=== PATIENT | male | born 1940 | race Caucasian/White ===

== ENCOUNTER 2018-02-05 13:22 | Inpatient (IN) | payer MEDICARE ==
[~2018-02-05] VITALS: Ht 160 cm; Wt 63.0 kg
[~2018-02-05 13:22] MED LIST: ASPI-496 PO; CETI10TA24 PO; CHOL2000 PO; CYAN25009 PO; DOXY25TA18 PO; HYDR-3237 PO; HYDR-3240 PO; LACT1CAP35 PO; LEVO25TA4 PO; LISI-167 PO; LUTE20TA PO; MAGN250T8 PO; MELO15TA24 PO; MELO7.5T31 PO; MULT-377 PO; OMEP-110 PO; TAMS0.4C2 PO; TRAM50TA2 PO; UBID100C24 PO
[2018-02-05 14:25] LABS: MEAN CORPUSCULAR HEMOGLOBIN 32.5 pg (27.5-34.5); MEAN CORPUSCULAR HGB CONC 34.4 g/dL (33.2-36.2); MEAN CORPUSCULAR VOLUME 94.4 fL (81-97); MEAN PLATELET VOLUME 8.5 fL (7.4-10.4); PLATELET COUNT 343 x10^3/uL (130-400); RED BLOOD COUNT 3.77 x10^6/uL (4.38-5.82); RED CELL DISTRIBUTION WIDTH 16.1 % (9.4-14.8)
[2018-02-05 14:29] LABS: ALBUMIN 3.4 g/dL (3.4-5.0); ANION GAP 10 mmol/L (5-15); CALCIUM 9.5 mg/dL (8.5-10.1); CHLORIDE 99 mmol/L (98-107)
[2018-02-05 14:44] LABS: ALANINE AMINOTRANSFERASE 1005 U/L (12-78); ALKALINE PHOSPHATASE 1066 U/L (45-117)
[2018-02-05] MEDS ORDERED: MIRA50TA PO (14:52)
[2018-02-05] MEDS ORDERED: DONE10TA14 PO (14:56)
[2018-02-05 14:58] LABS: MD YES
[2018-02-05] MEDS ORDERED: SODIUM CHLORIDE FLUSH 10ML SYR IVF ONE (15:00)
[2018-02-05 15:03] LABS: ANISOCYTOSIS 1+; BASOS#(MANUAL) 0.14 x10^3/uL (0-0.1); BASOS% (MANUAL) 2 % (0-1); LYMPH#(MANUAL) 0.63 x10^3/uL (1-3.4); LYMPHS% (MANUAL) 9 % (22-44); MONOS#(MANUAL) 0.63 x10^3/uL (0.3-2.7); MONOS% (MANUAL) 9 % (2-9); SEGS% (MANUAL) 80 % (42-75)
[2018-02-05 15:04] LABS: <PLATELET ESTIMATE> ADEQUATE; <PLT MORPHOLOGY> NORMAL PLT MORPH; MICROCYTOSIS 1+; TARGET CELLS 3+
[2018-02-05 15:57] LABS: MICROSCOPIC INDICATED
[2018-02-05 16:02] LABS: CULTURE INDICATED? YES
[2018-02-05] MEDS ORDERED: ONDANSETRON ODT 4 MG PO PRN (17:30)
[2018-02-05] MEDS ORDERED: LABETALOL 5MG/ML, 20ML IVPush PRN (17:30)
[2018-02-05] MEDS ORDERED: POLYETHYLENE GLYCOL 17 GM PACKET PO PRN (17:30)
[2018-02-05] MEDS ORDERED: ONDANSETRON 2MG/ML, 2ML IVPush PRN (17:30)
[2018-02-05 18:36] LABS: FREE T4 (FREE THYROXINE) 1.36 ng/dL (0.76-1.46)
[2018-02-05 19:30] VITALS: BP 131/61
[2018-02-05] MEDS: TAMSULOSIN 0.4 MG CAP.ER.24H PO SCH (21:37)
[2018-02-05] MEDS: DONEPEZIL 10 MG TABLET PO SCH (21:37)
[2018-02-05] MEDS: D5%-0.9% NACL 1,000 ML IV SCH (21:42)
[2018-02-06 05:29] LABS: MEAN CORPUSCULAR HEMOGLOBIN 32.6 pg (27.5-34.5); MEAN CORPUSCULAR HGB CONC 34.8 g/dL (33.2-36.2); MEAN CORPUSCULAR VOLUME 93.6 fL (81-97); MEAN PLATELET VOLUME 8.6 fL (7.4-10.4); PLATELET COUNT 332 x10^3/uL (130-400); RED BLOOD COUNT 3.55 x10^6/uL (4.38-5.82); RED CELL DISTRIBUTION WIDTH 16.2 % (9.4-14.8)
[2018-02-06] MEDS: LEVOTHYROXINE 125 MCG TABLET PO SCH (05:58)
[2018-02-06 06:05] LABS: MD YES
[2018-02-06 06:10] LABS: BASOS#(MANUAL) 0.11 x10^3/uL (0-0.1); BASOS% (MANUAL) 2 % (0-1); EOS#(MANUAL) 0.21 x10^3/uL (0.0-0.4); EOS% (MANUAL) 4 % (1-7); LYMPH#(MANUAL) 1.11 x10^3/uL (1-3.4); LYMPHS% (MANUAL) 21 % (22-44); MONOS#(MANUAL) 0.16 x10^3/uL (0.3-2.7); MONOS% (MANUAL) 3 % (2-9); SEG#(MANUAL) 3.71 x10^3/uL (1.8-6.8); SEGS% (MANUAL) 70 % (42-75)
[2018-02-06 06:13] LABS: <PLATELET ESTIMATE> ADEQUATE; <PLT MORPHOLOGY> NORMAL PLT MORPH; ANISOCYTOSIS 1+; TARGET CELLS 1+
[2018-02-06 07:48] VITALS: BP 111/59
[2018-02-06] MEDS: D5%-0.9% NACL 1,000 ML IV SCH ×2 (07:52→22:26)
[2018-02-06] MEDS: Ubidecarenone (Coq-10) 200 MG HOMEMEDPO SCH (09:00)
[2018-02-06] MEDS: SENNA/DOCUSATE TABLET PO SCH (09:00)
[2018-02-06] MEDS: LUTEIN 20 MG HOMEMEDPO SCH (09:00)
[2018-02-06 09:53] LABS: ALANINE AMINOTRANSFERASE 898 U/L (12-78); ANION GAP 11 mmol/L (5-15); CHLORIDE 102 mmol/L (98-107); CREATININE 1.64 mg/dL (0.7-1.3)
[2018-02-06 10:06] LABS: ALKALINE PHOSPHATASE 993 U/L (45-117); BILIRUBIN,TOTAL 13.1 mg/dL (0.2-1.0); TOTAL PROTEIN 6.1 g/dL (6.4-8.2)
[2018-02-06] MEDS: MULTIVITAMINS/MINERALS TABLET PO SCH (10:30)
[2018-02-06] MEDS: LISINOPRIL 10 MG TABLET PO SCH (10:31)
[2018-02-06] MEDS: CHOLECALCIFEROL 1,000 UNIT TABLET PO SCH (10:32)
[2018-02-06 13:42] LABS: INTERNATIONAL NORMALIZED RATIO 0.97 (0.93-1.1)
[2018-02-06 15:03] VITALS: BP 103/63
[2018-02-06 19:27] VITALS: BP 128/74
[2018-02-06] MEDS: TAMSULOSIN 0.4 MG CAP.ER.24H PO SCH (20:07)
[2018-02-06] MEDS: DONEPEZIL 10 MG TABLET PO SCH (20:07)
[2018-02-07 01:34] VITALS: BP 122/68
[2018-02-07 05:44] LABS: MEAN CORPUSCULAR HEMOGLOBIN 31.5 pg (27.5-34.5); MEAN CORPUSCULAR HGB CONC 33.9 g/dL (33.2-36.2); MEAN PLATELET VOLUME 9.1 fL (7.4-10.4); PLATELET COUNT 314 x10^3/uL (130-400); RED BLOOD COUNT 3.44 x10^6/uL (4.38-5.82); RED CELL DISTRIBUTION WIDTH 15.8 % (9.4-14.8)
[2018-02-07 05:47] LABS: CHLORIDE 106 mmol/L (98-107)
[2018-02-07 05:59] LABS: ALANINE AMINOTRANSFERASE 742 U/L (12-78); ALBUMIN 2.7 g/dL (3.4-5.0); ALKALINE PHOSPHATASE 936 U/L (45-117); ANION GAP 10 mmol/L (5-15); BILIRUBIN,TOTAL 12.4 mg/dL (0.2-1.0); CALCIUM 8.7 mg/dL (8.5-10.1); CREATININE 1.26 mg/dL (0.7-1.3); TOTAL PROTEIN 5.7 g/dL (6.4-8.2)
[2018-02-07 06:28] LABS: MD YES
[2018-02-07 06:30] LABS: BASOS#(MANUAL) 0.11 x10^3/uL (0-0.1); BASOS% (MANUAL) 2 % (0-1); EOS#(MANUAL) 0.33 x10^3/uL (0.0-0.4); EOS% (MANUAL) 6 % (1-7); LYMPH#(MANUAL) 1.54 x10^3/uL (1-3.4); LYMPHS% (MANUAL) 28 % (22-44); MONOS% (MANUAL) 9 % (2-9); SEG#(MANUAL) 3.03 x10^3/uL (1.8-6.8); SEGS% (MANUAL) 55 % (42-75)
[2018-02-07 06:32] LABS: <PLATELET ESTIMATE> ADEQUATE; ANISOCYTOSIS 1+; TARGET CELLS 2+
[2018-02-07 06:33] LABS: <PLT MORPHOLOGY> NORMAL PLT MORPH
[2018-02-07 07:27] VITALS: BP 113/64
[2018-02-07] MEDS ORDERED: FENTANYL PF 100 MCG/2ML ONE ×4 (07:46→10:36)
[2018-02-07] MEDS: LEVOTHYROXINE 125 MCG TABLET PO SCH ×2 (08:00→16:13)
[2018-02-07] MEDS: LUTEIN 20 MG HOMEMEDPO SCH (08:00)
[2018-02-07] MEDS: LISINOPRIL 10 MG TABLET PO SCH (08:00)
[2018-02-07] MEDS: Ubidecarenone (Coq-10) 200 MG HOMEMEDPO SCH (08:00)
[2018-02-07] MEDS ORDERED: PROMETHAZINE 12.5 MG SUPP PR PRN (09:00)
[2018-02-07] MEDS ORDERED: LABETALOL 5MG/ML, 20ML IV PRN (09:00)
[2018-02-07] MEDS ORDERED: morphine SULFATE 10 MG/ML, 1ML IV PRN (09:00)
[2018-02-07] MEDS ORDERED: PROMETHAZINE 25 MG/ML, 1ML IV PRN (09:00)
[2018-02-07] MEDS ORDERED: ONDANSETRON 2MG/ML, 2ML IVPush PRN (09:00)
[2018-02-07] MEDS ORDERED: EPHEDRINE 50 MG/ML, 1ML IVPush PRN (09:00)
[2018-02-07] MEDS ORDERED: OXYcodone 5 MG/5 ML ORAL.SOL UDC PO PRN (09:00)
[2018-02-07] MEDS ORDERED: PROPOFOL 10 MG/ML, 20ML ONE (09:07)
[2018-02-07] MEDS ORDERED: ROCURONIUM 10MG/ML,5ML ONE (09:07)
[2018-02-07] MEDS ORDERED: DEXAMETHASONE 4 MG/ML, 1ML ONE (09:08)
[2018-02-07] MEDS ORDERED: ONDANSETRON 2MG/ML, 2ML ONE (09:08)
[2018-02-07] MEDS ORDERED: SUCCINYLCHOLINE 20 MG/ML, 10ML ONE (09:08)
[2018-02-07] MEDS ORDERED: INDOMETHACIN 50 MG SUPP.RECT ONE (09:56)
[2018-02-07] MEDS: FENTANYL PF 100 MCG/2ML IV PRN ×4 (09:59→10:37)
[2018-02-07] MEDS ORDERED: MIDAZOLAM 1 MG/ML, 2ML ONE ×2 (10:08→10:36)
[2018-02-07] MEDS: MIDAZOLAM 1 MG/ML, 2ML IV PRN ×3 (10:09→10:38)
[2018-02-07] MEDS ORDERED: INDOMETHACIN 50 MG SUPP.RECT PR ONE (10:30)
[2018-02-07] MEDS ORDERED: MORPHINE SULFATE 4 MG/ML, 1ML ONE (10:48)
[2018-02-07] MEDS: CHOLECALCIFEROL 1,000 UNIT TABLET PO SCH (16:08)
[2018-02-07] MEDS: MULTIVITAMINS/MINERALS TABLET PO SCH (16:08)
[2018-02-07] MEDS: SENNA/DOCUSATE TABLET PO SCH (16:09)
[2018-02-07] MEDS: D5%-0.9% NACL 1,000 ML IV SCH ×2 (16:14→20:36)
[2018-02-07 16:17] VITALS: BP 122/70
[2018-02-07 18:30] VITALS: BP 133/72
[2018-02-07] MEDS: TAMSULOSIN 0.4 MG CAP.ER.24H PO SCH (20:36)
[2018-02-07] MEDS: DONEPEZIL 10 MG TABLET PO SCH (20:36)
[2018-02-08 01:33] VITALS: BP 131/61
[2018-02-08 04:21] LABS: MEAN CORPUSCULAR HEMOGLOBIN 31.2 pg (27.5-34.5); MEAN CORPUSCULAR HGB CONC 33.6 g/dL (33.2-36.2); MEAN CORPUSCULAR VOLUME 92.9 fL (81-97); MEAN PLATELET VOLUME 8.7 fL (7.4-10.4); PLATELET COUNT 324 x10^3/uL (130-400); RED BLOOD COUNT 3.22 x10^6/uL (4.38-5.82); RED CELL DISTRIBUTION WIDTH 16.2 % (9.4-14.8)
[2018-02-08 04:33] LABS: ALBUMIN 2.3 g/dL (3.4-5.0); ANION GAP 8 mmol/L (5-15); CALCIUM 8.4 mg/dL (8.5-10.1); CHLORIDE 106 mmol/L (98-107)
[2018-02-08 04:37] LABS: ALANINE AMINOTRANSFERASE 675 U/L (12-78); ALKALINE PHOSPHATASE 818 U/L (45-117); BILIRUBIN,TOTAL 7.8 mg/dL (0.2-1.0); CREATININE 1.58 mg/dL (0.7-1.3); TOTAL PROTEIN 5.5 g/dL (6.4-8.2)
[2018-02-08 05:30] LABS: MD YES
[2018-02-08 05:32] LABS: LYMPH#(MANUAL) 1.19 x10^3/uL (1-3.4); LYMPHS% (MANUAL) 14 % (22-44); MONOS#(MANUAL) 1.11 x10^3/uL (0.3-2.7); MONOS% (MANUAL) 13 % (2-9); SEG#(MANUAL) 6.21 x10^3/uL (1.8-6.8); SEGS% (MANUAL) 73 % (42-75)
[2018-02-08 05:33] LABS: <PLATELET ESTIMATE> ADEQUATE; <PLT MORPHOLOGY> NORMAL PLT MORPH; ANISOCYTOSIS 1+; TARGET CELLS 3+
[2018-02-08] MEDS: D5%-0.9% NACL 1,000 ML IV SCH (06:50)
[2018-02-08] MEDS ORDERED: MAGNESIUM SULFATE PMX 2GM/50ML 50 ML IV ONE (07:00)
[2018-02-08] MEDS ORDERED: SODIUM PHOSPHATE 4 MEQ/ML IV SCH (07:00)
[2018-02-08] MEDS ORDERED: LACTATED RINGERS 1,000 ML IV SCH (07:00)
[2018-02-08] MEDS ORDERED: SODIUM PHOSPHATE 30 MMOL in SODIUM CHLORIDE 0.9% 500 ML IV ONE (07:30)
[2018-02-08 07:43] VITALS: BP 102/55
[2018-02-08] MEDS: MULTIVITAMINS/MINERALS TABLET PO SCH (10:12)
[2018-02-08] MEDS: LEVOTHYROXINE 125 MCG TABLET PO SCH (10:13)
[2018-02-08] MEDS: SENNA/DOCUSATE TABLET PO SCH (10:13)
[2018-02-08] MEDS: CHOLECALCIFEROL 1,000 UNIT TABLET PO SCH (10:13)
[2018-02-08] MEDS: LISINOPRIL 10 MG TABLET PO SCH (10:15)
[2018-02-08] MEDS: LUTEIN 20 MG HOMEMEDPO SCH (10:17)
[2018-02-08] MEDS: Ubidecarenone (Coq-10) 200 MG HOMEMEDPO SCH (10:18)
[2018-02-08 13:36] LABS: ALBUMIN 2.7 g/dL (3.4-5.0); ANION GAP 8 mmol/L (5-15); CALCIUM 8.6 mg/dL (8.5-10.1); CHLORIDE 102 mmol/L (98-107)
[2018-02-08 13:39] LABS: ALANINE AMINOTRANSFERASE 738 U/L (12-78); ALKALINE PHOSPHATASE 881 U/L (45-117); BILIRUBIN,TOTAL 6.8 mg/dL (0.2-1.0); CREATININE 1.42 mg/dL (0.7-1.3)
[2018-02-08 13:45] VITALS: BP 116/70
[2018-02-08] MEDS ORDERED: LACTATED RINGERS 1,000 ML IVBOLUS ONE (16:00)
[2018-02-08 17:55] LABS: ANION GAP 7 mmol/L (5-15); CALCIUM 8.4 mg/dL (8.5-10.1); CHLORIDE 103 mmol/L (98-107); CREATININE 1.25 mg/dL (0.7-1.3)
[2018-02-14] MEDS ORDERED: CA/D1TAB7 PO (20:47)
[2018-02-14] MEDS ORDERED: CANNABIDIOL TP (20:53)
[2018-02-23] MEDS ORDERED: ERGO500017 PO (16:32)
[2018-02-23] MEDS ORDERED: CHOL239. PO (16:32)
[2018-02-23] MEDS ORDERED: ACYC-113 PO (16:33)
[2018-02-23] MEDS ORDERED: ERTA1VIA IV (16:35)
== END 2018-02-08 19:15 | disposition home or self-care (01) | DRG 420 ==
LOC: ED 17:03 → EDIP 17:04 → ED 17:23 → 3NW 18:15
PROVIDERS: ADMIT Hospitalist; ATTEND Hospitalist
PROC: 0FB04ZX Excision of Liver, Percutaneous Endoscopic Approach, Diagnostic (ICD-10-PCS; 2018-02-07)
PROC: 0FBG8ZX Excision of Pancreas, Via Natural or Artificial Opening Endoscopic, Diagnostic (ICD-10-PCS; 2018-02-07)
PROC: BF111ZZ Fluoroscopy of Biliary and Pancreatic Ducts using Low Osmolar Contrast (ICD-10-PCS; 2018-02-07)
PROC: 0DJ08ZZ Inspection of Upper Intestinal Tract, Via Natural or Artificial Opening Endoscopic (ICD-10-PCS; 2018-02-07)
PROC: BF47ZZZ Ultrasonography of Pancreas (ICD-10-PCS; 2018-02-07)
PROC: 0F798DZ Dilation of Common Bile Duct with Intraluminal Device, Via Natural or Artificial Opening Endoscopic (ICD-10-PCS; principal; 2018-02-07 14:30)
DX: C25.0 Malignant neoplasm of head of pancreas (principal); K85.90 Acute pancreatitis without necrosis or infection, unspecified; E43 Unspecified severe protein-calorie malnutrition; N17.9 Acute kidney failure, unspecified; C78.7 Secondary malignant neoplasm of liver and intrahepatic bile duct; D64.9 Anemia, unspecified; K72.90 Hepatic failure, unspecified without coma; K22.2 Esophageal obstruction; K80.51 Calculus of bile duct without cholangitis or cholecystitis with obstruction; B17.9 Acute viral hepatitis, unspecified; L29.9 Pruritus, unspecified; E03.9 Hypothyroidism, unspecified; E78.5 Hyperlipidemia, unspecified; G47.30 Sleep apnea, unspecified; I10 Essential (primary) hypertension; K21.9 Gastro-esophageal reflux disease without esophagitis; K44.9 Diaphragmatic hernia without obstruction or gangrene; K57.10 Diverticulosis of small intestine without perforation or abscess without bleeding; N40.0 Benign prostatic hyperplasia without lower urinary tract symptoms; R62.7 Adult failure to thrive; Z80.8 Family history of malignant neoplasm of other organs or systems; Z82.3 Family history of stroke; Z82.49 Family history of ischemic heart disease and other diseases of the circulatory system; Z85.528 Personal history of other malignant neoplasm of kidney; Z87.891 Personal history of nicotine dependence; Z90.5 Acquired absence of kidney; Z98.1 Arthrodesis status; M19.90 Unspecified osteoarthritis, unspecified site; Z68.24 Body mass index [BMI] 24.0-24.9, adult
CPT/HCPCS: 36415; 74181; 74328; 80048; 80053; 81001; 82378; 83690; 83735; 84100; 84439; 84443; 85025; 85610; 85730; 86301; 87086; 88172; 88173; 88177; 88307; 99285; J1100; J2250; J2405; J2704; J3010; J7042; C1769; C1876; J0330; J2270; J3475; J7040; J7120

== ENCOUNTER 2018-03-23 19:50 | Emergency (ER) | payer MEDICARE ==
[~2018-03-23] VITALS: Ht 162.6 cm; Wt 61.0 kg
[~2018-03-23 19:50] MED LIST changes: +ACYC-113 PO; +CA/D1TAB7 PO; +CANNABIDIOL TP; +CHOL239. PO; +DONE10TA14 PO; +ERGO500017 PO; +ERTA1VIA IV; +MIRA50TA PO
[2018-03-23] MEDS ORDERED: SODIUM CHLORIDE FLUSH 10ML SYR IVF ONE (20:00)
[2018-03-23 20:45] LABS: BASOPHILS # (AUTO) 0.09 x10^3/uL (0-0.1); BASOPHILS % (AUTO) 1 % (0-1); EOSINOPHILS # (AUTO) 0.06 x10^3/uL (0-0.4); EOSINOPHILS % (AUTO) 1 % (1-7); LYMPHOCYTES # (AUTO) 0.59 x10^3/uL (1-3.4); LYMPHOCYTES % (AUTO) 6 % (22-44); MD NO; MEAN CORPUSCULAR HEMOGLOBIN 33.3 pg (27.5-34.5); MEAN CORPUSCULAR HGB CONC 34.1 g/dL (33.2-36.2); MEAN CORPUSCULAR VOLUME 97.6 fL (81-97); MONOCYTES # (AUTO) 0.05 x10^3/uL (0.2-0.8); MONOCYTES % (AUTO) 1 % (2-9); NEUTROPHILS # (AUTO) 9.43 x10^3/uL (1.8-6.8); NEUTROPHILS % (AUTO) 92 % (42-75); PLATELET COUNT 270 x10^3/uL (130-400); RED BLOOD COUNT 3.11 x10^6/uL (4.38-5.82); RED CELL DISTRIBUTION WIDTH 18.3 % (9.4-14.8)
[2018-03-23 20:55] LABS: ALBUMIN 3.1 g/dL (3.4-5.0); ANION GAP 7 mmol/L (5-15); CALCIUM 8.4 mg/dL (8.5-10.1); CHLORIDE 99 mmol/L (98-107)
[2018-03-23 20:58] LABS: ALANINE AMINOTRANSFERASE 99 U/L (12-78); ALKALINE PHOSPHATASE 234 U/L (45-117); BILIRUBIN,TOTAL 1.3 mg/dL (0.2-1.0); CREATININE 1.27 mg/dL (0.7-1.3); TOTAL PROTEIN 6.8 g/dL (6.4-8.2)
[2018-03-23 21:11] LABS: MICROSCOPIC AUTO
[2018-03-23 21:13] LABS: CULTURE INDICATED? NO
[2018-03-23] MEDS ORDERED: CEFTRIAXONE PMX 1GM/50ML 50 ML ONE (21:54)
[2018-03-23] MEDS ORDERED: CEFTRIAXONE PMX 1GM/50ML 50 ML IV ONE (22:00)
[2018-03-23 23:07] VITALS: BP 112/63
== END 2018-03-23 23:09 | disposition home or self-care (01) ==
LOC: ED 22:06
DX: R50.9 Fever, unspecified (principal); C25.9 Malignant neoplasm of pancreas, unspecified; C78.7 Secondary malignant neoplasm of liver and intrahepatic bile duct; E03.9 Hypothyroidism, unspecified; I10 Essential (primary) hypertension; Z51.11 Encounter for antineoplastic chemotherapy
CPT/HCPCS: 36415; 71045; 80053; 81001; 83605; 84145; 85025; 87040; 96365; 99285; J0696

== ENCOUNTER 2018-04-04 18:32 | Emergency (ER) | payer MEDICARE ==
[~2018-04-04] VITALS: Ht 160 cm; Wt 60.7 kg
[2018-04-04 19:16] LABS: MICROSCOPIC NOT IND
[2018-04-04 19:17] LABS: CULTURE INDICATED? NO
[2018-04-04 19:32] VITALS: BP 138/78
[2018-04-04 19:35] LABS: BASOPHILS # (AUTO) 0.01 x10^3/uL (0-0.1); BASOPHILS % (AUTO) 0 % (0-1); EOSINOPHILS # (AUTO) 0.04 x10^3/uL (0-0.4); EOSINOPHILS % (AUTO) 1 % (1-7); LYMPHOCYTES # (AUTO) 0.81 x10^3/uL (1-3.4); LYMPHOCYTES % (AUTO) 11 % (22-44); MD NO; MEAN CORPUSCULAR HEMOGLOBIN 33.1 pg (27.5-34.5); MEAN CORPUSCULAR HGB CONC 33.9 g/dL (33.2-36.2); MEAN CORPUSCULAR VOLUME 97.7 fL (81-97); MONOCYTES # (AUTO) 0.66 x10^3/uL (0.2-0.8); MONOCYTES % (AUTO) 9 % (2-9); NEUTROPHILS # (AUTO) 6.16 x10^3/uL (1.8-6.8); NEUTROPHILS % (AUTO) 80 % (42-75); PLATELET COUNT 652 x10^3/uL (130-400); RED BLOOD COUNT 3.68 x10^6/uL (4.38-5.82); RED CELL DISTRIBUTION WIDTH 18.6 % (9.4-14.8)
[2018-04-04 19:52] LABS: ALANINE AMINOTRANSFERASE 57 U/L (12-78); ALBUMIN 3.6 g/dL (3.4-5.0); ANION GAP 9 mmol/L (5-15); CALCIUM 9.6 mg/dL (8.5-10.1); CHLORIDE 101 mmol/L (98-107); CREATININE 1.41 mg/dL (0.7-1.3)
[2018-04-04 19:54] LABS: ALKALINE PHOSPHATASE 344 U/L (45-117); BILIRUBIN,TOTAL 0.4 mg/dL (0.2-1.0)
== END 2018-04-04 21:13 | disposition home or self-care (01) ==
LOC: ED 19:38
DX: R50.9 Fever, unspecified (principal); E03.9 Hypothyroidism, unspecified; I10 Essential (primary) hypertension; C25.9 Malignant neoplasm of pancreas, unspecified
CPT/HCPCS: 36415; 71045; 80053; 81003; 83605; 84145; 85025; 87040; 99285

== ENCOUNTER → 2018-05-14 | Outpatient (CLI) | payer MEDICARE | END | disposition home or self-care (01) | LOC: RAD 09:46 | PROVIDERS: ATTEND Internal Medicine Hematology & Oncology | DX: C78.7 Secondary malignant neoplasm of liver and intrahepatic bile duct (principal); C25.0 Malignant neoplasm of head of pancreas | CPT/HCPCS: 71260; 74177; J1642 ==

== ENCOUNTER → 2018-05-29 | Outpatient (CLI) | payer MEDICARE | END | disposition home or self-care (01) | LOC: RAD 08:33 | PROVIDERS: ATTEND Internal Medicine Hematology & Oncology | DX: C78.7 Secondary malignant neoplasm of liver and intrahepatic bile duct (principal); C25.0 Malignant neoplasm of head of pancreas | CPT/HCPCS: 76700 ==

== ENCOUNTER 2018-08-08 20:52 | Inpatient (IN) | payer MEDICARE ==
[~2018-08-08] VITALS: Ht 160 cm; Wt 57.0 kg
[2018-08-08] MEDS ORDERED: ACETAMINOPHEN 325 MG TABLET ONE (21:21)
[2018-08-08] MEDS ORDERED: VANCOMYCIN PER PHARMACY MC ONE (21:30)
[2018-08-08] MEDS ORDERED: SODIUM CHLORIDE 0.9% 1,000ML IVBOLUS ONE (21:30)
[2018-08-08] MEDS ORDERED: PIPERACILLIN/TAZO/PMX 3.375GM 50 ML IVPB ONE (21:30)
[2018-08-08] MEDS ORDERED: ACETAMINOPHEN 325 MG TABLET PO ONE (21:30)
[2018-08-08] MEDS ORDERED: PIPERACILLIN/TAZO/PMX 3.375GM 50 ML ONE (21:31)
[2018-08-08 21:50] LABS: MEAN CORPUSCULAR HEMOGLOBIN 30.7 pg (27.5-34.5); MEAN CORPUSCULAR HGB CONC 33.6 g/dL (33.2-36.2); MEAN CORPUSCULAR VOLUME 91.3 fL (81-97); PLATELET COUNT 359 x10^3/uL (130-400); RED CELL DISTRIBUTION WIDTH 22.5 % (9.4-14.8)
[2018-08-08 21:59] LABS: ALANINE AMINOTRANSFERASE 48 U/L (12-78); ALBUMIN 2.4 g/dL (3.4-5.0); ANION GAP 10 mmol/L (5-15); CALCIUM 7.9 mg/dL (8.5-10.1); CHLORIDE 101 mmol/L (98-107); CREATININE 1.02 mg/dL (0.7-1.3)
[2018-08-08] MEDS ORDERED: VANCOMYCIN 1,300 MG in SODIUM CHLORIDE 0.9% 250 ML IV ONE (22:00)
[2018-08-08 22:03] LABS: ALKALINE PHOSPHATASE 571 U/L (45-117); BILIRUBIN,TOTAL 0.5 mg/dL (0.2-1.0); TOTAL PROTEIN 5.6 g/dL (6.4-8.2); TROPONIN I < 0.015 ng/mL (0.000-0.045)
[2018-08-08 22:07] LABS: BASOPHILS # (AUTO) 0.01 x10^3/uL (0-0.1); BASOPHILS % (AUTO) 0 % (0-1); EOSINOPHILS # (AUTO) 0.02 x10^3/uL (0-0.4); EOSINOPHILS % (AUTO) 0 % (1-7); LYMPHOCYTES # (AUTO) 0.32 x10^3/uL (1-3.4); LYMPHOCYTES % (AUTO) 1 % (22-44); MD SCAN; MONOCYTES % (AUTO) 3 % (2-9); NEUTROPHILS % (AUTO) 95 % (42-75)
[2018-08-08] MEDS ORDERED: SODIUM CHLORIDE 0.9% 1,000 ML IV ONE (23:03)
[2018-08-09 00:14] VITALS: BP 104/59
[2018-08-09] MEDS: TAMSULOSIN 0.4 MG CAP.ER.24H PO SCH ×2 (00:30→21:03)
[2018-08-09] MEDS ORDERED: PHARMACOKINETIC MONITORING MC PRN (00:30)
[2018-08-09] MEDS ORDERED: VANCOMYCIN PER PHARMACY MC PRN (00:30)
[2018-08-09] MEDS ORDERED: hydrALAzine 20 MG/ML, 1ML IVPush PRN (00:30)
[2018-08-09] MEDS ORDERED: ACETAMINOPHEN 325 MG TABLET PO PRN (00:30)
[2018-08-09] MEDS ORDERED: DOCUSATE 100 MG CAPSULE PO PRN (00:30)
[2018-08-09] MEDS ORDERED: ONDANSETRON 2MG/ML, 2ML IVPush PRN (00:30)
[2018-08-09] MEDS ORDERED: TEMAZEPAM 15 MG CAPSULE PO PRN (00:30)
[2018-08-09] MEDS: DONEPEZIL 10 MG TABLET PO SCH ×2 (00:30→21:03)
[2018-08-09] MEDS ORDERED: PHARMACOKINETIC CONSULTATION MC ONE (01:00)
[2018-08-09] MEDS: SODIUM CHLORIDE 0.9% 1,000 ML IV SCH ×2 (01:04→09:34)
[2018-08-09 01:15] LABS: MICROSCOPIC AUTO
[2018-08-09 01:33] LABS: CULTURE INDICATED? NO
[2018-08-09 02:11] VITALS: BP 97/43
[2018-08-09] MEDS: PIPERACILLIN/TAZO/PMX 3.375GM 50 ML IV SCH ×3 (03:08→15:33)
[2018-08-09] MEDS ORDERED: LEVOTHYROXINE 125 MCG TABLET ONE (05:44)
[2018-08-09] MEDS: LEVOTHYROXINE 25 MCG TABLET PO SCH (05:49)
[2018-08-09 07:05] VITALS: BP 108/68
[2018-08-09] MEDS ORDERED: POTASSIUM CHLORIDE 20 MEQ TAB.ER.PRT PO ONE (08:00)
[2018-08-09] MEDS ORDERED: TEMPLATE NON-FORMULARY MED. (Ubidecarenone (Coq-10) 200 MG) PO SCH (09:00)
[2018-08-09] MEDS ORDERED: [UNRECOGNIZED DRUG - OTHER] PO SCH (09:00)
[2018-08-09] MEDS ORDERED: MAGNESIUM OXIDE 400 MG TABLET PO PRN (09:00)
[2018-08-09] MEDS ORDERED: TEMPLATE NON-FORMULARY MED. (Lutein** 20 MG) PO SCH (09:00)
[2018-08-09 09:16] LABS: MEAN CORPUSCULAR HGB CONC 32.9 g/dL (33.2-36.2); MEAN CORPUSCULAR VOLUME 91.2 fL (81-97); MEAN PLATELET VOLUME 6.9 fL (7.4-10.4); PLATELET COUNT 360 x10^3/uL (130-400); RED BLOOD COUNT 3.15 x10^6/uL (4.38-5.82); RED CELL DISTRIBUTION WIDTH 22.8 % (9.4-14.8)
[2018-08-09 09:27] LABS: ANION GAP 7 mmol/L (5-15); CALCIUM 7.8 mg/dL (8.5-10.1); CHLORIDE 106 mmol/L (98-107); CREATININE 1.05 mg/dL (0.7-1.3)
[2018-08-09 09:31] LABS: BASOPHILS # (AUTO) 0.09 x10^3/uL (0-0.1); BASOPHILS % (AUTO) 0 % (0-1); EOSINOPHILS # (AUTO) 0.19 x10^3/uL (0-0.4); EOSINOPHILS % (AUTO) 1 % (1-7); LYMPHOCYTES # (AUTO) 0.63 x10^3/uL (1-3.4); LYMPHOCYTES % (AUTO) 3 % (22-44); MD SCAN; MONOCYTES # (AUTO) 0.85 x10^3/uL (0.2-0.8); MONOCYTES % (AUTO) 4 % (2-9); NEUTROPHILS # (AUTO) 20.62 x10^3/uL (1.8-6.8); NEUTROPHILS % (AUTO) 92 % (42-75)
[2018-08-09] MEDS: OMEPRAZOLE 20 MG CAPSULE.DR PO SCH (09:34)
[2018-08-09] MEDS: CHOLECALCIFEROL 1,000 UNIT TABLET PO SCH (09:35)
[2018-08-09 13:44] VITALS: BP 111/68
[2018-08-09 14:34] LABS: CLOSTRIDIUM DIFFICILE ANTIGEN NEGATIVE; CLOSTRIDIUM DIFFICILE TOXIN NEGATIVE (Negative)
[2018-08-09] MEDS ORDERED: CEFTRIAXONE 1,000 MG in SODIUM CHLORIDE 0.9% 50 ML IV SCH (16:00)
[2018-08-09 18:36] VITALS: BP 125/71
[2018-08-09] MEDS ORDERED: VANCOMYCIN 1,100 MG in SODIUM CHLORIDE 0.9% 250 ML IV SCH (22:00)
[2018-08-10] MEDS ORDERED: SODIUM CHLORIDE 0.9% 1,000 ML IV SCH (01:00)
[2018-08-10 01:24] VITALS: BP 140/75
[2018-08-10] MEDS: LEVOTHYROXINE 25 MCG TABLET PO SCH (06:00)
[2018-08-10] MEDS ORDERED: LEVOTHYROXINE 125 MCG TABLET ONE (06:10)
[2018-08-10 06:48] VITALS: BP 121/74
[2018-08-10 07:04] LABS: ALANINE AMINOTRANSFERASE 39 U/L (12-78); ALBUMIN 2.2 g/dL (3.4-5.0); ANION GAP 10 mmol/L (5-15); CALCIUM 8.2 mg/dL (8.5-10.1); CHLORIDE 107 mmol/L (98-107); CREATININE 1.01 mg/dL (0.7-1.3)
[2018-08-10 07:07] LABS: ALKALINE PHOSPHATASE 427 U/L (45-117); BILIRUBIN,TOTAL 0.2 mg/dL (0.2-1.0); TOTAL PROTEIN 5.3 g/dL (6.4-8.2)
[2018-08-10 07:22] LABS: MEAN CORPUSCULAR HEMOGLOBIN 30.2 pg (27.5-34.5); MEAN CORPUSCULAR HGB CONC 32.8 g/dL (33.2-36.2); MEAN CORPUSCULAR VOLUME 92.1 fL (81-97); MEAN PLATELET VOLUME 7.4 fL (7.4-10.4); PLATELET COUNT 369 x10^3/uL (130-400); RED BLOOD COUNT 3.29 x10^6/uL (4.38-5.82); RED CELL DISTRIBUTION WIDTH 23.9 % (9.4-14.8)
[2018-08-10 08:18] LABS: BASOPHILS # (AUTO) 0.04 x10^3/uL (0-0.1); BASOPHILS % (AUTO) 0 % (0-1); EOSINOPHILS # (AUTO) 0.35 x10^3/uL (0-0.4); EOSINOPHILS % (AUTO) 2 % (1-7); LYMPHOCYTES # (AUTO) 1.12 x10^3/uL (1-3.4); LYMPHOCYTES % (AUTO) 5 % (22-44); MD SCAN; MONOCYTES # (AUTO) 0.77 x10^3/uL (0.2-0.8); MONOCYTES % (AUTO) 4 % (2-9); NEUTROPHILS # (AUTO) 18.32 x10^3/uL (1.8-6.8); NEUTROPHILS % (AUTO) 89 % (42-75)
[2018-08-10] MEDS ORDERED: AZITHROMYCIN 250 MG TABLET PO SCH ×2 (09:00→10:13)
[2018-08-10] MEDS: CHOLECALCIFEROL 1,000 UNIT TABLET PO SCH ×2 (09:00→10:57)
[2018-08-10] MEDS ORDERED: OMNIPAQUE 350 MG/ML, 100ML BOTTLE ONE (09:40)
[2018-08-10] MEDS ORDERED: AZITHROMYCIN 500 MG TABLET PO ONE ×2 (10:30)
[2018-08-10] MEDS: OMEPRAZOLE 20 MG CAPSULE.DR PO SCH (10:57)
[2018-08-10 14:35] VITALS: BP 144/86
[2018-08-10] MEDS ORDERED: MIRA50TA PO (15:27)
[2018-08-10] MEDS ORDERED: AMPICILLIN/SULBACTAM 3 GM in SODIUM CHLORIDE 0.9% 100 ML IV SCH (15:30)
[2018-08-10] MEDS ORDERED: CEFTRIAXONE PMX 1GM/50ML 50 ML IV SCH ×2 (16:00)
[2018-08-10] MEDS: metroNIDAZOLE 500 MG TABLET PO SCH (17:56)
[2018-08-10 19:49] VITALS: BP 114/64
[2018-08-10] MEDS: CIPROFLOXACIN 500 MG TABLET PO SCH (21:05)
[2018-08-10] MEDS: TAMSULOSIN 0.4 MG CAP.ER.24H PO SCH (21:05)
[2018-08-10] MEDS: DONEPEZIL 10 MG TABLET PO SCH (21:05)
[2018-08-11 01:24] VITALS: BP 116/65
[2018-08-11] MEDS: metroNIDAZOLE 500 MG TABLET PO SCH ×3 (02:33→18:04)
[2018-08-11] MEDS: LEVOTHYROXINE 25 MCG TABLET PO SCH (06:00)
[2018-08-11] MEDS ORDERED: LEVOTHYROXINE 125 MCG TABLET ONE ×3 (06:18→06:21)
[2018-08-11] MEDS ORDERED: AZITHROMYCIN 250 MG TABLET PO SCH ×2 (09:00)
[2018-08-11 09:06] VITALS: BP 126/54
[2018-08-11] MEDS ORDERED: LOPERAMIDE 2 MG CAPSULE PO ONE (10:00)
[2018-08-11] MEDS: OMEPRAZOLE 20 MG CAPSULE.DR PO SCH (10:30)
[2018-08-11] MEDS: CIPROFLOXACIN 500 MG TABLET PO SCH ×2 (10:30→21:18)
[2018-08-11] MEDS: CHOLECALCIFEROL 1,000 UNIT TABLET PO SCH (10:31)
[2018-08-11 11:15] LABS: MEAN CORPUSCULAR HEMOGLOBIN 31.1 pg (27.5-34.5); MEAN CORPUSCULAR HGB CONC 33.5 g/dL (33.2-36.2); MEAN CORPUSCULAR VOLUME 92.6 fL (81-97); PLATELET COUNT 405 x10^3/uL (130-400); RED BLOOD COUNT 3.41 x10^6/uL (4.38-5.82); RED CELL DISTRIBUTION WIDTH 23.2 % (9.4-14.8)
[2018-08-11 11:18] LABS: ALANINE AMINOTRANSFERASE 39 U/L (12-78); ALBUMIN 2.3 g/dL (3.4-5.0); ANION GAP 8 mmol/L (5-15); CALCIUM 8.3 mg/dL (8.5-10.1); CHLORIDE 104 mmol/L (98-107); CREATININE 1.06 mg/dL (0.7-1.3)
[2018-08-11 11:20] LABS: ALKALINE PHOSPHATASE 381 U/L (45-117); BILIRUBIN,TOTAL 0.2 mg/dL (0.2-1.0); TOTAL PROTEIN 5.5 g/dL (6.4-8.2)
[2018-08-11 12:08] LABS: BASOPHILS # (AUTO) 0.06 x10^3/uL (0-0.1); BASOPHILS % (AUTO) 0 % (0-1); EOSINOPHILS # (AUTO) 0.24 x10^3/uL (0-0.4); EOSINOPHILS % (AUTO) 2 % (1-7); LYMPHOCYTES # (AUTO) 0.93 x10^3/uL (1-3.4); LYMPHOCYTES % (AUTO) 6 % (22-44); MD SCAN; MONOCYTES % (AUTO) 5 % (2-9); NEUTROPHILS # (AUTO) 14.02 x10^3/uL (1.8-6.8); NEUTROPHILS % (AUTO) 87 % (42-75)
[2018-08-11] MEDS: DRONABINOL 5 MG CAPSULE PO SCH (12:43)
[2018-08-11 12:55] VITALS: BP 128/73
[2018-08-11] MEDS: LOPERAMIDE 2 MG CAPSULE PO PRN ×3 (15:06→21:18)
[2018-08-11 20:29] VITALS: BP 98/60
[2018-08-11] MEDS: DONEPEZIL 10 MG TABLET PO SCH (21:18)
[2018-08-11] MEDS: TAMSULOSIN 0.4 MG CAP.ER.24H PO SCH (21:18)
[2018-08-12] MEDS: DRONABINOL 5 MG CAPSULE PO SCH ×2 (02:05→09:13)
[2018-08-12] MEDS: metroNIDAZOLE 500 MG TABLET PO SCH ×2 (02:05→09:13)
[2018-08-12 02:27] VITALS: BP 111/70
[2018-08-12 02:32] LABS: MEAN CORPUSCULAR HEMOGLOBIN 29.8 pg (27.5-34.5); MEAN CORPUSCULAR HGB CONC 32.5 g/dL (33.2-36.2); MEAN CORPUSCULAR VOLUME 91.6 fL (81-97); MEAN PLATELET VOLUME 6.9 fL (7.4-10.4); PLATELET COUNT 416 x10^3/uL (130-400); RED BLOOD COUNT 3.44 x10^6/uL (4.38-5.82); RED CELL DISTRIBUTION WIDTH 23.1 % (9.4-14.8)
[2018-08-12 02:42] LABS: ALANINE AMINOTRANSFERASE 34 U/L (12-78); ALBUMIN 2.2 g/dL (3.4-5.0); ANION GAP 8 mmol/L (5-15); CHLORIDE 105 mmol/L (98-107); CREATININE 1.17 mg/dL (0.7-1.3)
[2018-08-12 02:45] LABS: ALKALINE PHOSPHATASE 329 U/L (45-117); BILIRUBIN,TOTAL 0.2 mg/dL (0.2-1.0); TOTAL PROTEIN 5.2 g/dL (6.4-8.2)
[2018-08-12 03:03] LABS: MD YES
[2018-08-12 03:05] LABS: BAND#(MANUAL) 0.99 x10^3/uL; BANDS%(MANUAL) 5 % (0-7); EOS#(MANUAL) 0.39 x10^3/uL (0.0-0.4); EOS% (MANUAL) 2 % (1-7); LYMPH#(MANUAL) 2.17 x10^3/uL (1-3.4); LYMPHS% (MANUAL) 11 % (22-44); METAMYELOCYTES# (MANUAL) 0.39 x10^3/uL (0-0); METAMYELOCYTES% (MANUAL) 2 % (0-1); MONOS#(MANUAL) 0.59 x10^3/uL (0.3-2.7); MONOS% (MANUAL) 3 % (2-9); SEG#(MANUAL) 15.17 x10^3/uL (1.8-6.8); SEGS% (MANUAL) 77 % (42-75)
[2018-08-12 03:06] LABS: ANISOCYTOSIS 1+
[2018-08-12 03:07] LABS: <PLATELET ESTIMATE> INCREASED; SMALL PLATELETS 1+
[2018-08-12] MEDS: LEVOTHYROXINE 25 MCG TABLET PO SCH (06:00)
[2018-08-12] MEDS ORDERED: LEVOTHYROXINE 125 MCG TABLET ONE ×2 (06:31)
[2018-08-12 06:37] VITALS: BP 107/66
[2018-08-12] MEDS ORDERED: CIPR500T87 PO (08:30)
[2018-08-12] MEDS ORDERED: METR500T PO (08:30)
[2018-08-12] MEDS ORDERED: DRON5CAP15 PO (08:30)
[2018-08-12] MEDS ORDERED: LOPE2CAP PO (08:30)
[2018-08-12] MEDS: CIPROFLOXACIN 500 MG TABLET PO SCH (09:13)
[2018-08-12] MEDS: CHOLECALCIFEROL 1,000 UNIT TABLET PO SCH (09:13)
[2018-08-12] MEDS: OMEPRAZOLE 20 MG CAPSULE.DR PO SCH (09:14)
== END 2018-08-12 10:00 | disposition home or self-care (01) | DRG 871 ==
LOC: ED 21:56 → EDIP 23:03 → 3NW 23:45
PROVIDERS: ADMIT Hospitalist; ATTEND Hospitalist
DX: A41.9 Sepsis, unspecified organism (principal); J15.9 Unspecified bacterial pneumonia; E43 Unspecified severe protein-calorie malnutrition; C25.9 Malignant neoplasm of pancreas, unspecified; C78.7 Secondary malignant neoplasm of liver and intrahepatic bile duct; J98.11 Atelectasis; T45.1X5A Adverse effect of antineoplastic and immunosuppressive drugs, initial encounter; D64.81 Anemia due to antineoplastic chemotherapy; E03.9 Hypothyroidism, unspecified; E78.5 Hyperlipidemia, unspecified; E86.0 Dehydration; G47.30 Sleep apnea, unspecified; I10 Essential (primary) hypertension; K21.9 Gastro-esophageal reflux disease without esophagitis; K52.9 Noninfective gastroenteritis and colitis, unspecified; N40.0 Benign prostatic hyperplasia without lower urinary tract symptoms; D89.9 Disorder involving the immune mechanism, unspecified; M19.90 Unspecified osteoarthritis, unspecified site; Y92.89 Other specified places as the place of occurrence of the external cause; Z80.8 Family history of malignant neoplasm of other organs or systems; Z82.3 Family history of stroke; Z82.49 Family history of ischemic heart disease and other diseases of the circulatory system; Z85.07 Personal history of malignant neoplasm of pancreas; Z85.46 Personal history of malignant neoplasm of prostate; Z87.891 Personal history of nicotine dependence; Z90.5 Acquired absence of kidney
CPT/HCPCS: 36415; 71045; 71260; 74177; 80048; 80053; 81001; 83605; 84145; 84484; 85025; 87040; 87046; 87324; 89055; 96361; 96365; 96366; 96368; G0378; J0696; J2543; J3370; Q0167; Q9967; J7030; J7050

== ENCOUNTER → 2018-09-11 | Outpatient (CLI) | payer MEDICARE ==
[~2018-09-11] MED LIST changes: +CIPR500T87 PO; +DRON5CAP15 PO; +LOPE2CAP PO; +METR500T PO; +OMNIPAQUE 350 MG/ML, 100ML BOTTLE ONE
== END | disposition home or self-care (01) ==
LOC: RAD 09:41
PROVIDERS: ATTEND Internal Medicine Hematology & Oncology
DX: C78.7 Secondary malignant neoplasm of liver and intrahepatic bile duct (principal); K56.690 Other partial intestinal obstruction
CPT/HCPCS: 71260; 74177; Q9967

== ENCOUNTER 2018-11-18 16:53 | Emergency (ER) | payer MEDICARE ==
[~2018-11-18] VITALS: Ht 162.6 cm; Wt 55.0 kg
[~2018-11-18 16:53] MED LIST changes: -MULT-377 PO; +MULT-395 PO; -OMNIPAQUE 350 MG/ML, 100ML BOTTLE ONE
[2018-11-18] MEDS ORDERED: LIDOCAINE 2%,20 ML JEL.PF.APP MM ONE ×2 (17:24→18:00)
[2018-11-18] MEDS ORDERED: PINK LADY ENEMA 490 ML BOTTLE PR ONE (17:30)
--- NOTE | 2018-11-18 18:33 | NUR ---
[facility] ORDERED FROM PHARMACY
--- NOTE | 2018-11-18 18:55 | NUR ---
[facility] ADMINISTERED
--- NOTE | 2018-11-18 19:20 | NUR ---
JORDIN RN: PT REPORTS PAIN IN HIS RECTUM. PT IS NOT ABLE TO TOLERATE ENEMA. DR MORALES AWARE.
--- NOTE | 2018-11-18 19:33 | NUR ---
JORDIN RN: DR MORALES HAS UPDATED PATIENT.
--- NOTE | 2018-11-18 19:43 | NUR ---
REPORT GIVEN TO JOSÉ LUIS PEACOCK
--- NOTE | 2018-11-18 20:29 | NUR ---
awaiting ct results, then meds per dr. benitez
--- NOTE | 2018-11-18 20:57 | NUR ---
REQUESTED MED FROM PHARMACY
[2018-11-18 21:00] VITALS: BP 144/87
[2018-11-18] MEDS ORDERED: METHYLNALTREXONE 12 MG/0.6 ML SQ ONE (21:00)
--- NOTE | 2018-11-18 22:06 | NUR ---
PT IS CURRENTLY USING THE COMMODE. PT AND AWARE THEY ARE ABLE TO LEAVE ONCE HE FEELS UP TO IT AND OFF THE COMMODE, PT RECEIVED DC PAPERWORK ATT.
[2018-11-19] MEDS ORDERED: BISACODYL 5 MG EC TABLET PO ONE (09:00)
== END 2018-11-18 22:57 | disposition home or self-care (01) ==
LOC: ED 18:08
DX: K62.89 Other specified diseases of anus and rectum (principal); K59.00 Constipation, unspecified; I10 Essential (primary) hypertension
CPT/HCPCS: 74176; 96372; 99284